=== PATIENT | female | born 1945 | race Caucasian/White ===

== ENCOUNTER 2022-09-20 22:42 | Emergency (ER) | payer MEDICARE, OTHER ==
[~2022-09-20] VITALS: Ht 162.6 cm; Wt 65.0 kg
[~2022-09-20 22:42] MED LIST: MEDDOSEPAK OR
[2022-09-20 22:58] VITALS: BP 185/84
[2022-09-20 23:01] VITALS: BP 189/79
[2022-09-20 23:16] VITALS: BP 163/68
== END 2022-09-20 23:35 | disposition home or self-care (01) ==
LOC: ED 22:42
PROC: 0HQFXZZ Repair Right Hand Skin, External Approach (ICD-10-PCS; principal; 2022-09-20)
DX: S61.210A Laceration without foreign body of right index finger without damage to nail, initial encounter (principal); W27.5XXA Contact with paper-cutter, initial encounter; Y93.89 Activity, other specified; Y92.009 Unspecified place in unspecified non-institutional (private) residence as the place of occurrence of the external cause